=== PATIENT | female | born 1980 | race African-American/Black ===

== ENCOUNTER 2017-07-25 07:36 | Emergency (ER) | payer BC ==
[2017-07-25 07:47] VITALS: BP 152/63; PULSE 63; TEMP 97.7; BMI 48.2
[2017-07-25] MEDS ORDERED: AMOXICILLIN 500 MG CAPSULE (FP) PO ONE (08:21)
[2017-07-25] MEDS ORDERED: KETOROLAC TROMETHAMINE 60 MG/2 ML VIAL IM ONE (08:21)
--- NOTE | 2017-07-25 08:25 | PDOC ---
History of Present Illness - General Chief Complaint: Toothache Stated Complaint: PAIN Time Seen by Provider: 07/25/17 08:17 History Source: Patient Exam Limitations: No Limitations - History of Present Illness Initial Comments: 07/25/17 08:20 states has molar crack ~ 3 weeks ago, has appt for dentist next week but tooth and mouth has started to ache. No fevers/ swelling Timing/Duration: unsure Severity: moderate Associated Symptoms: reports: denies symptoms, fever/chills. denies: headaches Past History - Travel Traveled outside of the country in the last 30 days: No Close contact w/someone who was outside of country & ill: No - Past Medical History Allergies/Adverse Reactions: Allergies Allergy/AdvReac Type Severity Reaction Status Date / Time No Known Allergies Allergy Verified 07/25/17 07:47 Home Medications: Ambulatory Orders Amoxicillin - [Amoxicillin 500mg Capsule -] 500 mg PO TID #21 capsule 07/25/17 COPD: No - Surgical History Cholecystectomy: Yes - Suicide/Smoking/Psychosocial Hx Smoking History: Never smoked Review of Systems - Review of Systems Able to Perform ROS?: Yes Is the patient limited Slovak proficient: Yes Constitutional: Yes: Symptoms Reported, See HPI, Malaise. No: Fever HEENTM: Yes: See HPI, Mouth Pain, Dental Problems. No: Symptoms Reported, Difficulty Swallowing Respiratory: Yes: See HPI. No: Symptoms reported, Cough Musculoskeletal: No: Symptoms Reported Integumentary: Yes: See HPI. No: Symptoms Reported All Other Systems: Reviewed and Negative *Physical Exam - Vital Signs Last Vital Signs Temp Pulse Resp BP Pulse Ox 97.7 F 63 18 152/63 100 07/25/17 07:43 07/25/17 07:43 07/25/17 07:43 07/25/17 07:43 07/25/17 07:43 - Physical Exam General Appearance: Yes: Nourished, Appropriately Dressed, Apparent Distress, Mild Distress HEENT: positive: SUMAN, Normal ENT Inspection, TMs Normal, Pharynx Normal, Other (cracked lower left last molar to posterior aspect. No swelling abscess/ drainage. FROM to jaw. No facial swelling ). negative: Rhinorrhea, Sinus Tenderness, TM Erythema Neck: positive: Supple, Lymphadenopathy (R), Lymphadenopathy (L). negative: Tender Respiratory/Chest: positive: Lungs Clear Medical Decision Making - Medical Decision Making 07/25/17 0 07/25/17 08:44 UCG negative, we'll treat with NSAIDs, amoxicillin and encouraged follow-up this week for dental evaluation *DC/Admit/Observation/Transfer Diagnosis at time of Disposition: Toothache - Discharge Dispostion Disposition: HOME Condition at time of disposition: Stable Admit: No - Prescriptions Prescriptions: Amoxicillin - [Amoxicillin 500mg Capsule -] 500 mg PO TID #21 capsule - Referrals Referrals: ON STAFF,NOT [Primary Care Provider] - - Patient Instructions Printed Discharge Instructions: DI for Dental Pain Additional Instructions: Rest, drink lots of fluids: Teas, water, soups Saltwater gargles/ keep mouth clean and rinse after each meal May use wet teabag for pain relief to area Avoid hard chewing foods, stick to ice cream, Jell-O, yogurt etc. Tylenol or Motrin for fever and pain Complete all medication as prescribed Seek dental appointment as soon as possible for evaluation of dental injury/pain Followup with private physician in one to 2 days as needed Return to emergency department for worsened symptoms, fevers, swelling to face or worsened pain - Post Discharge Activity Forms/Work/School Notes: Back to Work
[2017-07-25] MEDS ORDERED: KETOROLAC TROMETHAMINE 60 MG/2 ML VIAL ONE (08:45)
[2017-07-25] MEDS ORDERED: AMOXICILLIN 250 MG CAPSULE ONE (08:45)
== END 2017-07-25 09:13 | disposition home or self-care (01) ==
LOC: JERFT 07:36
PROC: 3E0233Z Introduction of Anti-inflammatory into Muscle, Percutaneous Approach (ICD-10-PCS; principal; 2017-07-25)
DX: K08.89 Other specified disorders of teeth and supporting structures (principal); K03.81 Cracked tooth
CPT/HCPCS: 84703; 99281-25